=== PATIENT | male | born 1985 | race Caucasian/White ===

== ENCOUNTER 2024-09-16 18:49 | Emergency (ER) | payer OTHER ==
[~2024-09-16] VITALS: Ht 167.6 cm; Wt 82.0 kg
[2024-09-16 21:12] VITALS: BP 154/85; TEMP 97.3; O2SAT 100
== END 2024-09-16 21:16 | disposition home or self-care (01) ==
LOC: M ED 18:49
DX: F15.10 Other stimulant abuse, uncomplicated (principal); F31.9 Bipolar disorder, unspecified

== ENCOUNTER 2025-06-05 07:54 | Inpatient (IN) | payer MEDICAID, OTHER ==
[~2025-06-05] VITALS: Ht 167.6 cm; Wt 83.2 kg
[2025-06-05 08:34] LABS: PLATELET COUNT, AUTOMATED 289 10^3/uL (150-450)
[2025-06-05 08:57] LABS: BARBITURATES URINE NEGATIVE (NEGATIVE)
[2025-06-05 08:58] LABS: BENZODIAZEPINES URINE NEGATIVE (NEGATIVE); CANNABINOIDS URINE NEGATIVE (NEGATIVE); COCAINE METABOLITE URINE NEGATIVE (NEGATIVE); METHADONE URINE NEGATIVE (NEGATIVE); OPIATES URINE NEGATIVE (NEGATIVE); PHENCYCLIDINE URINE NEGATIVE (NEGATIVE)
[2025-06-05 09:00] LABS: ETHYL ALCOHOL (ETHANOL) 0.006 % (0.000-0.010)
[2025-06-05 09:01] LABS: AMPHETAMINES LEVEL URINE POSITIVE (NEGATIVE)
[2025-06-05 09:02] LABS: ALT/SGPT 25 U/L (7.0-40); AST/SGOT 21 U/L (<34); CALCIUM LEVEL 9.5 MG/DL (8.5-10.1); CARBON DIOXIDE LEVEL 23 MMOL/L (20-31); CHLORIDE LEVEL 105 MMOL/L (98-107); CREATININE FOR GFR 1.12 MG/DL (0.70-1.30); GLOMERULAR FILTRATION RATE 86.8 (>60); POTASSIUM SERUM 4.6 MMOL/L (3.5-5.1); SALICYLATE LEVEL < 3.0 MG/DL (<30); SODIUM LEVEL 143 MMOL/L (136-145)
[2025-06-05] MEDS ORDERED: ACETAMINOPHEN 325 MG TAB PO PRN (11:10)
[2025-06-05] MEDS ORDERED: IBUPROFEN 400 MG TAB PO PRN (11:10)
[2025-06-05] MEDS ORDERED: MOM 30 ML SUSPENSION UDC PO PRN (11:10)
[2025-06-05] MEDS ORDERED: MAALOX 30 ML SUSP *UDC PO PRN (11:10)
[2025-06-05] MEDS ORDERED: HOME MED LIST COMPLETE! XX SCH (11:55)
[2025-06-05 12:04] VITALS: BP 138/78
[2025-06-05 12:18] VITALS: BP 138/78; TEMP 98.5; O2SAT 97
[2025-06-05] MEDS: MULTIVITAMINS/MINERALS THERAP 1 TAB PO SCH (12:52)
[2025-06-05] MEDS: FOLIC ACID 1 MG TAB PO SCH (12:52)
[2025-06-05] MEDS: THIAMINE 100 MG TAB PO SCH (12:53)
[2025-06-05 13:45] LABS: PLATELET COUNT, AUTOMATED 258 10^3/uL (150-450)
[2025-06-05 14:56] VITALS: BP 147/74
[2025-06-05] MEDS: traZODone 50 MG TAB PO PRN (20:05)
[2025-06-05] MEDS: OLANZapine 5 MG TAB PO PRN (20:05)
[2025-06-05 22:54] VITALS: BP 142/78
[2025-06-06 06:27] VITALS: BP 128/73; TEMP 97.8; O2SAT 98
[2025-06-06] MEDS: SERTRALINE HCL 50 MG TAB PO SCH (09:55)
[2025-06-06] MEDS: risperiDONE 0.5 MG TAB PO SCH (09:55)
[2025-06-06] MEDS: NICOTINE 21 MG/24 HR 1 EA TRANSDERMAL TD SCH (10:25)
[2025-06-06 14:53] VITALS: BP 148/76
[2025-06-06 15:19] VITALS: BP 148/76; TEMP 97.9; O2SAT 100
[2025-06-07 06:13] VITALS: BP 138/90; TEMP 98.8; O2SAT 99
[2025-06-07 15:45] VITALS: BP 127/61; TEMP 98.3; O2SAT 98
[2025-06-08] MEDS ORDERED: FOLI1TAB11 PO (09:46)
[2025-06-08] MEDS ORDERED: TRAZ-252 PO (09:46)
[2025-06-08] MEDS ORDERED: RISP0.5T82 PO (09:46)
[2025-06-08] MEDS ORDERED: SERT50TA29 PO (09:46)
== END 2025-06-08 12:06 | disposition home or self-care (01) | DRG 753 ==
LOC: M ED 07:54 → M ED INP 11:07 → M PSY 12:14
PROVIDERS: ADMIT General Practice; ATTEND General Practice
DX: F39 Unspecified mood [affective] disorder (principal); F15.90 Other stimulant use, unspecified, uncomplicated; R45.851 Suicidal ideations; F17.200 Nicotine dependence, unspecified, uncomplicated; F10.20 Alcohol dependence, uncomplicated; D72.829 Elevated white blood cell count, unspecified; Z91.199 Patient's noncompliance with other medical treatment and regimen due to unspecified reason